=== PATIENT | female | born 1950 | race Caucasian/White ===

== ENCOUNTER 2022-05-08 11:46 | Outpatient (CLI) | payer MEDICARE, OTHER, SELFPAY ==
[2022-05-08 21:39] LABS: Chloride* 103 mmol/L (96-114)
[2022-05-08 21:40] LABS: Albumin* 4.1 g/dL (3.3-5.0); Potassium* 4.5 mmol/L (3.6-5.1); Sodium* 141 mmol/L (135-149)
[2022-05-08 21:42] LABS: Carbon Dioxide* 32 mmol/L (20-32); Cholesterol* 203 mg/dL (90-199); Creatinine* 0.8 mg/dL (0.5-1.5); Estimated Glomerular Filt Rate 79 ml/min
[2022-05-08 21:43] LABS: Alanine Aminotransferase* 19 U/L (4-35); Alkaline Phosphatase* 56 U/L (40-150); Aspartate Amino Transferase* 27 U/L (12-35); Bilirubin Total* 1.1 mg/dL (0.1-1.5); Blood Urea Nitrogen* 21 mg/dL (7-30); Glucose* 96 mg/dL (60-115); Total Protein* 7.3 g/dL (6.0-8.3); Triglycerides* 71 mg/dL (40-149)
[2022-05-08 21:44] LABS: Calcium* 9.6 mg/dL (8.4-10.6); HDL Cholesterol* 87 mg/dL (>=50); LDL Cholesterol Calculated 102 mg/dL (<100)
== END 2022-05-08 11:47 | disposition home or self-care (01) ==
PROVIDERS: PCP Physician Assistant Medical; Visit Provider Physician Assistant Medical
DX: Z00.00 Encounter for general adult medical examination without abnormal findings (principal); F32.A Depression, unspecified; I10 Essential (primary) hypertension; E66.9 Obesity, unspecified; Z13.6 Encounter for screening for cardiovascular disorders
CPT/HCPCS: 80053; 80061; 84443

== ENCOUNTER 2022-06-04 13:10 | Outpatient (CLI) | payer MEDICARE, OTHER, SELFPAY ==
--- NOTE | 2022-06-04 13:30 | CRLHL7_ITS ---
For Patients: As a result of the Century Cures Act, medical imaging exams and procedure reports are released immediately into your electronic medical record. You may view this report before your referring provider. If you have questions, please contact your health care provider. DXA BONE MINERAL DENSITY STUDY Current height (in): 63.0. Weight (lb): 180.0. Menopause age: 41. Ethnicity: White. 1. Have you had a previous hip or vertebral fracture? No. 2. Have you had any fractures during your adult life which did not result from significant trauma (e.g., auto accident)? No. 3. Did either of your parents have a hip fracture? No. 4. Do you smoke? No. 5. Have you ever taken Glucocorticoids? No. 6. Do you have rheumatoid arthritis? No. 7. Do you have secondary osteoporosis? No. 8. Do you drink 3 or more alcoholic drinks per day? No. 9. Are you being treated for osteoporosis? Yes. 10. Have you ever taken any of the following medications: Actonel, Evista, Fosamax, Miacalcin, Reclast, Boniva, Forteo, HRT (i.e. estrogen/hormone therapy), Protelos, Prolia, Vitamin D, Calcium, other ??? please specify. ANSWER: No. 11. Do you have any of the following medical conditions: Anorexia or bulimia, asthma or emphysema, end stage renal disease, hyperparathyroidism, any seizure disorders, cancer, inflammatory bowel diseases, hysterectomy, other ??? please specify. ANSWER: Yes, hysterectomy. 12. What was your maximum height (inches)? 64. 13. Do you perform weight bearing exercise regularly? No. 14. Do you regularly consume dairy products? Yes. 15. Do you drink caffeinated beverages? No. 16. At what age did your period start? 14. 17. Are you premenopausal? No. 18. How many full term pregnancies have you had? 19. Have you ever missed your period for more than 6 months in a row (not including or menopause)? No. TECHNIQUE: Bone mineral density study was performed using the [employer]. FINDINGS: The results of the study expressed as bone mineral density (BMD) are as follows: Lumbar spine L1 to L4: BMD: 0.846 g/cm2. T-score: -1.8. Z-score: 0.3. Neck Left: BMD: 0.670 g/cm2. T-score: -1.6. Z-score: 0.2. Right: BMD: 0.679 g/cm2. T-score: -1.5. Z-score: 0.3. Total Left: BMD: 0.821 g/cm2. T-score: -1.0. Z-score: 0.6. Right: BMD: 0.722 g/cm2. T-score: -1.8. Z-score: -0.2. IMPRESSION: Osteopenia. FRAX 10-year Fracture Risk Major Osteoporotic Fracture: 10 percent Hip Fracture: 1.6 percent Reported Risk Factors: [place] () Neck BMD=0.670, BMI=31.9 Donald Villagomez M.D. Diagnostic Radiologist [email or web address] CHETAN/[email or web address] / be/Dictated by: Donald Villagomez MD @ 06/04/2022 3:18:00 PM (Electronically Signed)
== END 2022-06-04 13:11 | disposition home or self-care (01) ==
LOC: RAD 13:11
PROVIDERS: PCP Physician Assistant Medical; Visit Provider Physician Assistant Medical
DX: Z78.0 Asymptomatic menopausal state (principal); M85.89 Other specified disorders of bone density and structure, multiple sites; N95.9 Unspecified menopausal and perimenopausal disorder
CPT/HCPCS: 77080

== ENCOUNTER 2022-06-16 14:34 | Outpatient (CLI) | payer MEDICARE, OTHER, SELFPAY | END 2022-06-16 14:35 | disposition home or self-care (01) | PROVIDERS: PCP Physician Assistant Medical; Visit Provider Physician Assistant Medical | DX: I10 Essential (primary) hypertension (principal); K21.9 Gastro-esophageal reflux disease without esophagitis; R07.9 Chest pain, unspecified; F32.A Depression, unspecified; M79.671 Pain in right foot | CPT/HCPCS: 80053; 82607; 83690; 84443 ==

== ENCOUNTER 2022-06-27 13:11 | Outpatient (CLI) | payer MEDICARE, OTHER, SELFPAY ==
--- NOTE | 2022-06-27 13:20 | CRLHL7_ITS ---
For Patients: As a result of the Century Cures Act, medical imaging exams and procedure reports are released immediately into your electronic medical record. You may view this report before your referring provider. If you have questions, please contact your health care provider. BILATERAL SCREENING MAMMOGRAM WITH COMPUTER-AIDED DETECTION TECHNIQUE: CC and MLO views were obtained. These mammographic images have been obtained using full-field digital technique. These mammographic images were interpreted with the benefit of computer-aided detection. COMPARISON FILM: 05/06/21, 04/18/20, 02/08/20. FINDINGS: There are scattered areas of fibroglandular density IMPRESSION: There is no radiographic evidence for malignancy. ASSESSMENT: BI-RADS Category 1: Negative RECOMMENDATION: Routine screening mammogram in 1 year. A lay language report of this examination will be provided to the patient. Donald Villagomez M.D. Diagnostic Radiologist [email or web address] CHETAN/[email or web address] Transcribed: 2:41 p.terrell arenas/Dictated by: Donald Villagomez MD @ 06/30/2022 8:36:00 AM (Electronically Signed)
== END 2022-06-27 13:12 | disposition home or self-care (01) ==
PROVIDERS: PCP Physician Assistant Medical; Visit Provider Physician Assistant Medical
DX: Z12.31 Encounter for screening mammogram for malignant neoplasm of breast (principal)
CPT/HCPCS: 77067

== ENCOUNTER 2022-10-02 10:38 | Outpatient (CLI) | payer MEDICARE, OTHER, SELFPAY ==
--- NOTE | 2022-10-02 11:00 | CRLHL7_ITS ---
For Patients: As a result of the Century Cures Act, medical imaging exams and procedure reports are released immediately into your electronic medical record. You may view this report before your referring provider. If you have questions, please contact your health care provider. Indication: EPIGASTRIC PAIN. VOMITING Technique: Postcontrast CT abdomen and pelvis. 92 cc Isovue 370 intravenous contrast. Please note that all CT scans at this facility use dose modulation, iterative reconstruction, and/or weight-based dosing when appropriate to reduce radiation dose to as low as reasonably achievable. Comparison: CT chest 08/22/2020 Findings: Mild dependent atelectasis noted within the left lower lobe. No pleural effusion. No free intraperitoneal air. Normal liver. The gallbladder is absent. No biliary obstruction. The adrenal glands are normal. No splenomegaly. Pancreas appears normal. Adrenal glands are normal. There are small bilateral renal cysts. No hydronephrosis. A few scattered mesenteric lymph nodes are noted measuring less than 1 cm. Also subcentimeter GE junction lymph nodes noted. Sigmoid diverticulosis. No diverticulitis. No bowel obstruction. No free fluid or abscess. No fracture noted. Degenerative changes at L5-S1. No hiatal hernia. Impression: A few scattered subcentimeter lymph nodes are present within the mesenteric fat and adjacent to the GE junction may suggest mild adenitis. No bowel obstruction or evidence of enteritis/colitis. Sigmoid diverticulosis. No diverticulitis. Please note that all CT scans at this facility use dose modulation, iterative reconstruction, and/or weight-based dosing when appropriate to reduce radiation dose to as low as reasonably achievable. Dictated by Donald Villagomez MD @ 10/02/2022 12:36:16 PM (Electronically Signed)
[2022-10-02 11:27] LABS: Creatinine* 0.9 mg/dL (0.5-1.5); Estimated Glomerular Filt Rate 68 ml/min
== END 2022-10-02 10:39 | disposition home or self-care (01) ==
LOC: CT 10:40
PROVIDERS: PCP Physician Assistant Medical; Visit Provider Physician Assistant Medical
DX: R10.13 Epigastric pain (principal); K57.90 Diverticulosis of intestine, part unspecified, without perforation or abscess without bleeding; K21.9 Gastro-esophageal reflux disease without esophagitis
CPT/HCPCS: 36415; 74177; 82565; Q9967

== ENCOUNTER 2022-10-03 10:00 | Outpatient (CLI) | payer MEDICARE, OTHER, SELFPAY ==
--- NOTE | 2022-10-03 10:46 | W.ANESCHARGE ---
Anesthesia Charges Start Date/Time Anesthesia Start Date: 10/03/22 Anesthesia Start Time: 10:30 Stop Date/Time Anesthesia Stop Date: 10/03/22 Anesthesia Stop Time: 10:45
== END 2022-10-03 10:01 | disposition home or self-care (01) ==
LOC: OP CLINIC 10:01
PROVIDERS: PCP Physician Assistant Medical; Visit Provider Internal Medicine
DX: R10.13 Epigastric pain (principal)
CPT/HCPCS: 00731; 43239; 88305; J2405; J2704

== ENCOUNTER 2023-01-02 07:56 | Outpatient (CLI) | payer MEDICARE, OTHER, SELFPAY ==
--- NOTE | 2023-01-02 08:15 | CRLHL7_ITS ---
For Patients: As a result of the Century Cures Act, medical imaging exams and procedure reports are released immediately into your electronic medical record. You may view this report before your referring provider. If you have questions, please contact your health care provider. Technique: Double-contrast upper GI performed after the uneventful administration of effervescent crystals and thick barium followed by thin barium. Small-bowel follow-through then performed. Fluoroscopy time 3 minutes 21 seconds. Indication: UPPER ABDOMINAL PAIN Comparison: None. Findings: Swallowing mechanism is normal. Decreased esophageal motility. Severe spontaneous reflux to the proximal esophagus. 2.5 cm sliding hiatal hernia. Tertiary contractions involving the distal esophagus. Gastric mucosal thickening located adjacent to the GE junction. Normal distal stomach and duodenal bulb. Small bowel loops are normal. Transit time less than 1 hour. Impression: Severe spontaneous gastroesophageal reflux into the proximal esophagus with associated distal esophageal tertiary contractions and decreased esophageal motility. 2.5 cm sliding hiatal hernia. Associated gastric fold thickening adjacent to the GE junction. No ulcer or obstruction. Normal duodenal bulb and small bowel loops without inflammatory bowel disease. Normal small bowel transit time. Dictated by Donald Villagomez MD @ 01/02/2023 10:44:48 AM (Electronically Signed)
== END 2023-01-02 07:57 | disposition home or self-care (01) ==
LOC: RAD 07:58
PROVIDERS: PCP Physician Assistant Medical; Visit Provider Internal Medicine
DX: R10.10 Upper abdominal pain, unspecified (principal); K21.9 Gastro-esophageal reflux disease without esophagitis
CPT/HCPCS: 74246; 74248

== ENCOUNTER 2023-07-27 13:08 | Outpatient (CLI) | payer MEDICARE, OTHER, SELFPAY ==
--- NOTE | 2023-07-27 13:20 | MM_ITS ---
Patient: SIDENY ROTH Facility:?[facility] Patient ID:?[id number] Site Patient ID:?[id number]. Site :?[id number] Study:?XRay-Breast Bilateral 3D W/CAD-07/27/2023 1:38:38 PM Ordering Physician:Tierney Final Report: BILATERAL SCREENING MAMMOGRAM WITH COMPUTER-AIDED DETECTION AND TOMOSYNTHESIS TECHNIQUE: CC and MLO views were obtained. These mammographic images have been obtained using full-field digital technique. These mammographic images were interpreted with the benefit of computer-aided detection. Breast Tomosynthesis was used in this interpretation. COMPARISON FILM: 06/09/22, 05/06/21, 04/18/20. FINDINGS: The breasts are heterogeneously dense, which may obscure small masses. IMPRESSION: There is no radiographic evidence for malignancy. ASSESSMENT: BI-RADS Category 2: Benign RECOMMENDATION: Routine screening mammogram in 1 year. A lay language report of this examination will be provided to the patient. Donald Villagomez M.D. Diagnostic Radiologist [email or web address] DSM/sp R& Transcribed: 3:17 p.m. SP/Dictated by: Donald Villagomez MD @ 07/28/2023 12:57:00 PM Signed by:?Donald Villagomez MD @07/28/2023 3:56:55 PM (Electronic Signature)
== END 2023-07-27 13:09 | disposition home or self-care (01) ==
LOC: MAMMO 13:09
PROVIDERS: PCP Physician Assistant Medical; Visit Provider Physician Assistant Medical
DX: Z12.31 Encounter for screening mammogram for malignant neoplasm of breast (principal); R92.2 Inconclusive mammogram
CPT/HCPCS: 77063; 77067

== ENCOUNTER 2023-10-05 06:34 | Outpatient (CLI) | payer MEDICARE, OTHER, SELFPAY ==
--- NOTE | 2023-10-05 08:23 | W.ANESCHARGE ---
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
--- NOTE | 2023-10-05 10:23 | W.ANESCHARGE ---
Anesthesia Charges Start Date/Time Anesthesia Start Date: 10/05/23 Anesthesia Start Time: 07:20 Stop Date/Time Anesthesia Stop Date: 10/05/23 Anesthesia Stop Time: 08:20
--- NOTE | 2023-10-05 10:24 | W.ANESCHARGE ---
Anesthesia Charges Start Date/Time Anesthesia Start Date: 10/05/23 Anesthesia Start Time: 07:20 Stop Date/Time Anesthesia Stop Date: 10/05/23 Anesthesia Stop Time: 08:20 Summary Extremes of Age - Over 70 or under 1: MDA
== END 2023-10-05 06:35 | disposition home or self-care (01) ==
LOC: OP CLINIC 06:34
PROVIDERS: PCP Physician Assistant Medical; Visit Provider Surgery
DX: Z12.11 Encounter for screening for malignant neoplasm of colon (principal); K63.5 Polyp of colon; K57.30 Diverticulosis of large intestine without perforation or abscess without bleeding
CPT/HCPCS: 00811; 45385; 88305; 99100; J2405; J2704

== ENCOUNTER 2024-05-12 15:36 | Outpatient (CLI) | payer MEDICARE, OTHER, SELFPAY | END 2024-05-12 15:37 | disposition home or self-care (01) | PROVIDERS: PCP Physician Assistant Medical; Visit Provider Physician Assistant Medical | DX: I10 Essential (primary) hypertension (principal); E78.5 Hyperlipidemia, unspecified; Z13.1 Encounter for screening for diabetes mellitus; Z13.820 Encounter for screening for osteoporosis | CPT/HCPCS: 80053; 80061; 84443 ==

== ENCOUNTER 2024-08-17 14:19 | Outpatient (CLI) | payer MEDICARE, OTHER, SELFPAY ==
--- NOTE | 2024-08-17 14:30 | CRLHL7_ITS ---
For Patients: As a result of the Century Cures Act, medical imaging exams and procedure reports are released immediately into your electronic medical record. You may view this report before your referring provider. If you have questions, please contact your health care provider. DXA BONE MINERAL DENSITY STUDY Reason for exam: Screening for osteoporosis. Current height (in): 63. Weight (lb): 175. Menopause age: 41. Ethnicity: White. 1. Have you had a previous hip or vertebral fracture? No. 2. Have you had any fractures during your adult life which did not result from significant trauma (e.g., auto accident)? No. 3. Did either of your parents have a hip fracture? No. 4. Do you smoke? No. 5. Have you ever taken Glucocorticoids? No. 6. Do you have rheumatoid arthritis? No. 7. Do you have secondary osteoporosis? No. 8. Do you drink 3 or more alcoholic drinks per day? No. 9. Are you being treated for osteoporosis? No. 10. Have you ever taken any of the following medications: Actonel, Evista, Fosamax, Miacalcin, Reclast, Boniva, Forteo, HRT (i.e. estrogen/hormone therapy), Protelos, Prolia, Vitamin D, Calcium, other ??? please specify. ANSWER: No. 11. Do you have any of the following medical conditions: Anorexia or bulimia, asthma or emphysema, end stage renal disease, hyperparathyroidism, any seizure disorders, cancer, inflammatory bowel diseases, hysterectomy, other ??? please specify. ANSWER: Yes, hysterectomy. 12. What was your maximum height (inches)? 64. 13. Do you perform weight bearing exercise regularly? No. 14. Do you regularly consume dairy products? Yes. 15. Do you drink caffeinated beverages? No. 16. At what age did your period start? 14. 17. Are you premenopausal? No. 18. How many full term pregnancies have you had? 3. 19. Have you ever missed your period for more than 6 months in a row (not including or menopause)? No. TECHNIQUE: Bone mineral density study was performed using the [employer]. FINDINGS: The results of the study expressed as bone mineral density (BMD) are as follows: Lumbar spine L1 to L4: BMD: 0.898 g/cm2. T-score: -1.4. Z-score: 0.9. Neck Left: BMD: 0.662 g/cm2. T-score: -1.7. Z-score: 0.3. Right: BMD: 0.611 g/cm2. T-score: -2.1 . Z-score: -0.2. Total Left: BMD: 0.819 g/cm2. T-score: -1.0 . Z-score: 0.7. Right: BMD: 0.768 g/cm2. T-score: -1.4. Z-score: 0.3. IMPRESSION: Osteopenia. *Comparison exams done prior to 08/2019 were performed on different unit, [employer]. COMPARISON: Compared with scan of 06/04/2022, the bone mineral density has increased by 6.1 percent at the spine and increased by 2.9 percent at the hip. FRAX 10-year Fracture Risk Major Osteoporotic Fracture: 13 percent Hip Fracture: 3.1 percent Reported Risk Factors: [place] () Neck BMD=0.611, BMI=31.0 Donald Villagomez M.D. Diagnostic Radiologist [email or web address] SP/Dictated by: Donald Villagomez MD @ 08/17/2024 3:50:00 PM (Electronically Signed)
--- NOTE | 2024-08-17 15:00 | CRLHL7_ITS ---
For Patients: As a result of the Century Cures Act, medical imaging exams and procedure reports are released immediately into your electronic medical record. You may view this report before your referring provider. If you have questions, please contact your health care provider. INDICATION: BILATERAL SCREENING MAMMOGRAM, ASYMPTOMATIC 74 Y/O FEMALE COMPARISON: 07/27/2023, 06/27/2022, 05/26/2021 TECHNIQUE: Digital mammogram in CC and MLO projections including computer-aided detection (CAD) and tomosynthesis. BREAST COMPOSITION: There are scattered areas of fibroglandular density. FINDINGS: No suspicious findings. ASSESSMENT: BI-RADS 1 Negative RECOMMENDATION: Annual screening mammogram. A lay language report of this examination will be provided to the patient. Dictated by: Donald Villagomez MD @ 08/18/2024 09:33:03 (Electronically Signed)
== END 2024-08-17 14:20 | disposition home or self-care (01) ==
LOC: RAD 14:20
PROVIDERS: PCP Physician Assistant Medical; Visit Provider Physician Assistant Medical
DX: Z12.31 Encounter for screening mammogram for malignant neoplasm of breast (principal); Z13.820 Encounter for screening for osteoporosis; M85.89 Other specified disorders of bone density and structure, multiple sites; Z78.0 Asymptomatic menopausal state
CPT/HCPCS: 77063; 77067; 77080

== ENCOUNTER 2024-10-13 05:55 | Outpatient (CLI) | payer MEDICARE, OTHER, SELFPAY ==
[2024-10-13 11:06] VITALS: BMI 33.1
== END 2024-10-13 05:56 | disposition home or self-care (01) ==
LOC: NUTRITION 05:56
PROVIDERS: PCP Physician Assistant Medical; Visit Provider Dietitian, Registered
DX: E66.9 Obesity, unspecified (principal); Z68.31 Body mass index [BMI] 31.0-31.9, adult; Z71.3 Dietary counseling and surveillance
CPT/HCPCS: G0463

== ENCOUNTER 2024-10-19 16:22 | Emergency (ER) | payer MEDICARE, OTHER, SELFPAY ==
--- NOTE | 2024-10-19 16:23 | ED.GENADULT ---
HPI - General Adult General Date Seen: 10/19/24 Chief complaint: Laceration/Wound Stated complaint: scratch on R hand Time Seen by Provider: 10/19/24 16:23 History of Present Illness HPI narrative: 74 yo generally healthy, fully vaccinated female (most recent tetanus was 2023) presenting to the ER today with a laceration to the dorsum of her right hand. She was playing with her family dog this afternoon. They were apparently playing with a dog toy. The dog accidentally scraped the back of her hand with 1 of his canines. It did not really by bite her hand or child down but rather just had the toothbrush the back of her hand and she suffered an injury. She suffered a curvilinear laceration on the dorsum of the right hand that overlies the 4th and 5th metacarpals. It is a couple of cm proximal to her dorsal MCP joints. She notes that the skin did gape open and she could see some ?white? material in the wound. She has been able to flex and extend her fingers. No associated numbness. Her daughter brought her to the ER because she is convinced that she will need stitches. The patient is afraid of needles and would hope she does not need stitches. The dog is fully vaccinated, including rabies. Related Data Home Medications ?Medication ?Instructions ?Recorded ?Confirmed omeprazole 20 mg capsule,delayed 20 mg PO BID 05/08/22 10/19/24 release hydrocortisone 2.5 % topical cream 1 applic MD BID PRN 01/26/23 10/19/24 with perineal applicator (Proctosol HC) Previous Rx's ?Medication ?Instructions ?Recorded amlodipine 5 mg tablet 5 mg PO QDAY #90 tabs 05/12/24 irbesartan 150 1 tab PO QDAY #90 tabs 05/12/24 mg-hydrochlorothiazide 12.5 mg tablet venlafaxine 150 mg 150 mg PO DAILY #90 caps 06/07/24 capsule,extended release 24 hr triamcinolone acetonide 0.1 % 1 applic topical BID PRN itching 09/19/24 topical cream #30 grams amoxicillin 875 mg-potassium 1 tab PO BID #10 tabs 10/19/24 clavulanate 125 mg tablet Allergies Allergy/AdvReac Type Severity Reaction Status Date / Time Sulfa (Sulfonamide Allergy Severe Rash Verified 10/19/24 16:40 Antibiotics) bacitracin (From Allergy Mild Rash Verified 10/19/24 16:40 Polysporin(bacitracin base)) polymyxin B (From Allergy Mild Rash Verified 10/19/24 16:40 Polysporin(bacitracin base)) [facility] Medical History (Updated 10/19/24 @ 17:45 by Uday Sawant MD) Corneal abrasion ?S05.00XA - Injury of conjunctiva and corneal abrasion without foreign body, unspecified eye, initial encounter (ICD-10) On hormone replacement therapy (10/09/11) ?Z79.890 - Hormone replacement therapy (ICD-10) Surgical History (Updated 02/10/22 @ 13:44 by Joana Montoya) History of total hysterectomy ?Z90.710 - Acquired absence of both cervix and uterus (ICD-10) History of cholecystectomy ?Z90.49 - Acquired absence of other specified parts of digestive tract (ICD-10) History of section ?Z98.891 - History of uterine scar from previous surgery (ICD-10) Family History (Updated 05/12/24 @ 16:09 by Mariajose Matos PA-C) Aunt Breast cancer Father Heart disease Mother Gallbladder disease Brother Gallbladder disease Daughter Thyroid disease Social History (Updated 05/12/24 @ 16:16 by Mikayla Mendez ~ CTA) Narrative: , three adult children. Daughter, son, and grandchildren live with pt, has chickens, 3 dogs and cats as pets non smoker What is your current living situation?: I presently have a place to live Problems where you live: no known problems In the past 12 months, utilities in danger of being shut off: no In past 12 months, lack of transportation kept you from medical appts, meetings, work, or getting things needed for daily living: no In the past 12 mos, have been you worried that your food would run out before you had money to buy more?: never true In the past 12 mos, the food you bought just didn't last and you didn't have money to buy more?: never true Smoking Status: Never smoker Do you use any of these nicotine containing products: None How often do you have a drink containing alcohol: never How often do you have six or more drinks on one occasion: Never AUDIT-C Alcohol total score: 0 Non-prescribed substance use: denies use How often does anyone, including family, friends and others, physically hurt you: never How often does anyone, including family, friends and others, insult or talk down to you: never How often does anyone, including family, friends and others, threaten you with harm: never How often does anyone, including family, friends and others, scream or curse at you: never service: No Exam Narrative: Exam Narrative: Constitutional: Appears well-developed and well-nourished. Active. Non-toxic appearing. Very polite. Somewhat nervous about needing stitches. HENT: Head: Atraumatic. No signs of injury. Nose: No nasal discharge. Mouth/Throat: Mucous membranes are moist. Pharynx is normal. Tonsils symmetric. Uvula midline. Airway patent. Eyes: Conjunctivae normal and EOM are normal. Pupils are equal, round, and reactive to light. Right eye exhibits no discharge. Left eye exhibits no discharge. No icterus. Neck: Normal range of motion. Neck supple. No adenopathy. No stridor. Cardiovascular: Normal rate and regular rhythm. Wrist distal cap refill. Strong radial pulse. No active bleeding. Pulmonary/Chest: Effort normal. No stridor. No respiratory distress. Abdominal: Soft. Bowel sounds are normal. No distension. No mass. There is no tenderness. There is no rebound and no guarding. Musculoskeletal: Normal except for her right hand- Normal range of motion. No edema. No tenderness. No deformity. Right upper extremity: Clavicle, shoulder, humerus, biceps, triceps, elbow, forearm, wrist are normal. On the right hand there is a 2.5 cm curvilinear laceration on the skin of the dorsal 4th and 5th metacarpals. When the patient flexes her fingers down the wound edge does gape about 4-5 mm. I can see exposed subcutaneous adipose tissue but I do not see and any evidence that this would extends down to the extensor tendon. No visible foreign body. No active bleeding. No arterial bleeding. Intact distal sensory function in the ulnar, median, or radial nerves. Intact distal digital nerve function. Normal flexion and extension of the MCP, PIP, DI P joints. Neurological: Alert. Normal strength. No cranial nerve deficit or sensory deficit. Coordination normal. GCS eye subscore is 4. GCS verbal subscore is 5. GCS motor subscore is 6. Skin: Skin is warm. No rash noted. Const: Vital Signs, click to edit/add: Vital Signs - 24 hr 10/19/24 16:31 10/19/24 18:20 Temperature 97.5 F L 98.7 F Pulse Rate [Right Pulse Oximeter] 84 62 Respiratory Rate 19 18 Blood Pressure [Ri t Upper Arm] 157/88 H 146/92 H Pulse Oximetry 95 74 L Oxygen Delivery Me thod Room Air Room Air Course Vital Signs Vital signs: Initial Vital Signs Temperature 97.5 F L 10/19/24 16:31 Temperature Source Temporal Artery Scan 10/19/24 16:31 Pulse Rate 84 10/19/24 16:31 Pulse Rhythm Regular 10/19/24 16:31 Pulse Strength 3+ Normal 10/19/24 16:31 Respiratory Rate 19 10/19/24 16:31 Blood Pressure 157/88 H 10/19/24 16:31 Blood Pressure Mean 111 H 10/19/24 16:31 Blood Pressure Position Sitting 10/19/24 16:31 Pulse Oximetry 95 10/19/24 16:31 Oxygen Delivery Method Room Air 10/19/24 16:31 Vital Signs Temperature 97.5 F L 10/19/24 16:31 Pulse Rate 84 10/19/24 16:31 Respiratory Rate 19 10/19/24 16:31 Blood Pressure 157/88 H 10/19/24 16:31 Pulse Oximetry 95 10/19/24 16:31 Oxygen Delivery Method Room Air 10/19/24 16:31 Temperature 98.7 F 10/19/24 18:20 Pulse Rate 62 10/19/24 18:20 Respiratory Rate 18 10/19/24 18:20 Blood Pressure 146/92 H 10/19/24 18:20 Pulse Oximetry 74 L 10/19/24 18:20 Oxygen Delivery Method Room Air 10/19/24 18:20 Medications Administered Medications: Discontinued Medications Generic Name Dose Route Start Last Admin Trade Name Freq PRN Reason Stop Dose Admin Bupivacaine HCl 30 ml 10/19/24 17:21 10/19/24 17:26 Bupivacaine 0.25% 30 Ml INJECTION 10/19/24 17:22 30 ml ONCE ONE Administration Medical Decision Making MDM Narrative Medical decision making narrative: Findings and exam are consistent with an uncomplicated laceration which was repaired as noted above. There is no evidence at this time to suggest any associated fracture or foreign body. There is no evidence to suggest tendon or arterial injury and patient is neurologically in tact[]. The patient is to follow up for suture removal as instructed in 9-10 days. Indications to seek urgent reevaluation and signs of infection (including but not limited to increasing pain, redness, swelling, fevers, and drainage) were reviewed. Tetanus is up-to-date. This is a clean and non-contaminated , we did copiously scrubbed and irrigated after local anesthesia. Since it is a dog bite on the hand we will start prophylactic Augmentin.. An understanding of the discharge instructions and need for follow up were verbally confirmed. Discharge Plan Discharge Clinical Impression: Dog bite, Laceration of right hand Patient Disposition: Home, Self-Care Condition: Stable Instructions: Animal Bite (ED), Laceration (DC) Additional Instructions: As we discussed, please keep the wound covered with a dressing today. Beginning tomorrow, take the dressing off and wash the wound gently with gauze soaked in warm clean water. You do not have to use bleach or hydrogen peroxide or other potent antiseptics on the wound, just warm water will be fine. Try not to submerge the wound under water but it is okay to wash gently with gauze. After the wound is clean, gently dry it with clean dry gauze or let it air dry. Then reapply antibiotic ointment they are not allergic to and reapply a large bandage to cover the back of your hand in the stitches. Clean the wound once per day and monitor carefully for any signs of infection. If you notice redness, swelling, pus draining from the wound, red streaks moving up or down your hand, or your having worsening pain or fever, please come back to the ER or see your doctor right away. Start on the preventative antibiotic (Augmentin) this evening to help prevent infections from this dog wound. Please follow-up with your doctor to have the stitches out next or Thursday (10/27 or 10/28). If not able to get into your doctor, you can come back to the ER for suture removal Prescriptions: New amoxicillin-pot clavulanate 875-125 mg tablet 1 tab PO BID Qty: 10 0RF No Action omeprazole 20 mg capsule,delayed release(DR/EC) 20 mg PO BID irbesartan-hydrochlorothiazide 150-12.5 mg tablet 1 tab PO QDAY Qty: 90 3RF Rx Instructions: once daily for high blood pressure amlodipine 5 mg tablet 5 mg PO QDAY Qty: 90 3RF Rx Instructions: once daily for blood pressure hydrocortisone [Proctosol HC] 2.5 % cream with perineal applicator 1 applic MD BID PRN venlafaxine 150 mg capsule,extended release 24hr 150 mg PO DAILY Qty: 90 1RF Rx Instructions: Take 1 capsule daily in addition to already prescribed 37.5mg capsule. triamcinolone acetonide 0.1 % cream 1 applic topical BID PRN (Reason: itching ) Qty: 30 3RF Rx Instructions: twice daily as needed for itching on scalp Follow Up/Referrals: Mariajose Matos PA-C [Primary Care Provider, Family Practice] Stand Alone Forms: [facility] Info Instructions Procedures Laceration Dorsal right hand laceration: Verification/time out: correct patient and correct site Site: upper extremity (Dorsal right hand) Side (If applicable): right Size (cm): 2.5 Description: linear Depth: simple, single layer Local Anesthetic: bupivacaine 0.25% Amount of anesthesia used (mL): 5 Pre-repair: wound explored and irrigated extensively Skin layer closed with: nylon Size (cm): 5-0 Number of sutures: 5 Technique: simple, interrupted
--- OUTSIDE RECORDS SUMMARY | 2024-10-19 16:24 | XMS_ITS | Clinical Summary ---
Author Organization [facility] Address [address] [address] Care Team Providers Care Commodities Trader Name Role Phone Joana Barrera MD Primary Care Provider [phone] Source Comments You are receiving this document as you are listed as the primary care provider,follow-up provider, or the patient has been referred to you for consultation.This is in compliance with the Medicare and[facility] EHR Incentive Program,which states Providers who transition their patient to another setting of careor provider of care or refers their patient to another provider of care shouldprovide summary care record for each transition of care or referral. [facility] Allergies Active Allergy Reactions Criticality Noted Date Comments Bacitracin Hives 10/17/2015 Sulfa Antibiotics 10/17/2015 PN: makes her turn red Medications amLODIPine (NORVASC) 2.5 MG tablet Take 2.5 mg by mouth daily (every 24 hours). 10/17/2015 Active venlafaxine (EFFEXOR) 75 MG tabletIndicatio ns:LUANN ENRIQUE ThuOct 17, 2015 9:06 AM Received from: [facility] Take 75 mg by mouth. 07/03/2013 Active omeprazole (PRILOSEC) 20 MG capsule Take 20 mg by mouth daily (every 24 hours). 10/17/2015 Active fluticasone (FLONASE SENSIMIST) 27.5 MCG/SPRAY nasal solutionIndicat ions:Nasal congestion Place 2 Sprays into both nostrils daily. 1 Bottle 1 01/21/2018 Active Active Problems Problem Noted Date Diagnosed Date Obstructive sleep apnea on CPAP 02/07/2016 Overview (01/21/2018): Setting: APAP 5-15 FFM Supplied by: [employer] PSG done: 10/26/15 AHI 43 RDI 44 Lowest O2 Sat: 81% [place] 01/21/18 change to [place] New 11/19/15, change/renew in Vendor 06/12/16;(refaxed 11-03-16) Social History Tobacco Use Types Packs/Day Years Used Date Smoking Tobacco: Never Smokeless Tobacco: Never Alcohol Use Standard Drinks/Week Comments Yes 0 (1 standard drink = 0.6 oz pur e alcohol) Rare Comments Unknown Sex and Gender Information Value Date Recorded Sex Assigned at Not on file Legal Sex Female 3:35 PM CDT Gender Identity Not on file Sexual Orientation Not on file Last Filed Vital Signs Vital Sign Reading Time Taken Comments Blood Pressure 138/90 01/21/2018 12:19 PM CDT Pulse 71 01/21/2018 12:19 PM CDT Temperature - - Respiratory Rate 16 11/01/2015 1:29 PM CDT Oxygen Saturation 97% 01/21/2018 12:19 PM CDT Inhaled Oxygen Concentration - - Weight 85.7 kg (189 lb) 01/21/2018 12:19 PM CDT Height 160 cm (5' 3) 01/21/2018 12:19 PM CDT Body Mass Index 33.48 01/21/2018 12:19 PM CDT Plan of Treatment Health Maintenance Due Date Last Done Comments Colon Cancer Screening Plan Due 1950 Hep C Screening (Preventive Services) 1950 Medicare Annual Wellness Visit 1950 Mammogram 1950 Cholesterol 1996 Dexa 2016 DTaP/Tdap/Td Vaccine (3 - Tdap) 08/13/2022 08/13/2012, 02/03/2011, 04/13/2006, Additional history exists COVID-19 Vaccine (3 - 2023- season) 2023 07/03/2020, 06/12/2020 Influenza Vaccine (#1) 2024 , 02/28/2019, 01/26/2018, Additional history exists RSV Vaccine (1 - 1-dose 75+ series) 2026 Pneumococcal Vaccine 50+ Yrs Completed 03/22/2018, 03/20/2017 Zoster/Shingles Vaccine Completed 05/04/2019, 11/11 HepA Vaccine Aged Out No longer eligi ble based on patient's age to complete this topic HepB Vaccine Aged Out No longer eligi ble based on patient's age to complete this topic Hib Vaccine Aged Out No longer eligi ble based on patient's age to complete this topic IPV (Polio) Vaccine Aged Out No longe r eligible based on patient's age to complete this topic MCV4 Vaccine Aged Out No longer eligi ble based on patient's age to complete this topic Meningococcal B Vaccine Aged Out No l onger eligible based on patient's age to complete this topic Insurance MEDICARE [employer] Care Teams Commodities Trader Relationship Specialty Start Date End Date Joana Barrera MD [address] [place] [address] [id number] [facility] - General 09/20/15
--- OUTSIDE RECORDS SUMMARY | 2024-10-19 16:24 | XMS_ITS | Clinical Summary ---
Author Organization [employer] [facility] Address [address] [place] [address] Care Team Providers Care Checker Product Design Name Role Phone Pcp, No Primary Care Provider Unavailabl e Allergies Active Allergy Reactions Criticality Noted Date Comments Bacitracin *Unknown 07/25/2009 Sulfa (Sulfonamide Antibiotics) *Unknown 06/29 Medications triamcinolone (ARISTOCORT; KENALOG) 0.1 % creamIndications :Eczema, dyshidrotic Apply topically to affected area(s) 3 times daily. 60 g 3 2 Active ALPRAZolam (XANAX) 1 mg tabletIndication s:Anxiety state, unspecified Take 1 tablet by mouth 3 times daily if needed. 21 tablet 0 2 Active estradiol (ESTRACE) 0.5 mg tablet Take 1 tablet by mouth once daily. 30 tablet 6 2 Active hydrochlorothiaz loren (HCTZ) 25 mg tabletIndication s:Essential hypertension, benign Take 0.5 tablets by mouth once daily. 90 tablet 3 2 Active irbesartan (AVAPRO) 150 mg tabletIndication s:Essential hypertension, benign Take 1 tablet by mouth once daily. 90 tablet 3 2 Active venlafaxine (EFFEXOR) 75 mg tablet Take 1 tablet by mouth every morning. 0 4 Active Active Problems Problem Noted Date Diagnosed Date GERD (gastroesophageal reflux disease) 2 Symptomatic menopausal or female climacteric sta les 07/28/2011 Eczema, dyshidrotic 02/26/2010 Major depressive disorder, r ecurrent episode, in partial or unspecified remission 02/26/2010 Essential hypertension, benign Anxiety state, unspecified Resolved Problems Problem Noted Date Diagnosed Date Resolved Date Depression, endogenous 02/26 Immunizations Immunization Administration Dates Next Due Influenza, IIV3 (Age >=3 years) 02/03/2011,02/26 Td (Age >=7 Years) 11/09/2004 Tdap 02/03/2011 Tuberculin (PPD) 08/05/2010 Family History Medical History Relation Name Comments Heart Disease Father mi age 62 Cancer-prostate Maternal Grandfather Cancer Mother Heart Disease Mother Stroke Mother Relation Name Status Comments Father Maternal Grandfather Mother Social History Tobacco Use Types Packs/Day Years Used Date Smoking Tobacco: Never Smokeless Tobacco: Never Tobacco Cessation:Counseling Given: No Alcohol Use Standard Drinks/Week Comments No 0 (1 standard drink = 0.6 oz pur e alcohol) Comments No Sex and Gender Information Value Date Recorded Sex Assigned at Not on file Legal Sex Female 7:51 AM CIGAR MAKER Gender Identity Not on file Sexual Orientation Not on file Obstetrics History Para Term AB IAB SAB Ectopic Multiple Livin g Live Births 3 Date Outcome GA Total Labor Labor/2nd/3rd Weight Sex Type Anes PTL Geri A1 A5 Name Clin Last Filed Vital Signs Vital Sign Reading Time Taken Comments Blood Pressure 124/82 07/03/2013 3:16 PM CDT Pulse 75 07/03/2013 3:16 PM CDT Temperature 36.6 C (97.8 F) 07/03/2013 3:16 PM CDT Respiratory Rate 12 07/03/2013 3:16 PM CDT Oxygen Saturation 99% 07/03/2013 3:16 PM CDT Inhaled Oxygen Concentration - - Weight 84.4 kg (186 lb) 07/28/2011 10:54 AM CDT Height 162.6 cm (5' 4) 04/09/2011 9:09 AM CIGAR MAKER Body Mass Index 31.93 04/09/2011 9:09 AM CIGAR MAKER Plan of Treatment Health Maintenance Due Date Last Done Comments Depression screening for age 12+ 1963 BMI (ht and wt on same day) for age 18+ 1969 Hepatitis C screening for age 18-79 1969 Pneumococcal series for age 50+ (1 of 1 - PCV) 2001 Zoster (shingles) series for age 50+ (1 of 2) 2001 Colonoscopy through age 75 09/28/201109/27 (Completed outside of [facility]) Mammogram for age 45-75 04/09/2012 04/09/19 12, 02/12/2010, 08/31/2008 Lipids for age 45-75 04/09/2016 04/09/2011, 02/27/20 10 DEXA/DXA scan for age 65+ 2016 12/20/2004 Tetanus booster 02/03/2021 02/03/2011, 11/09/2004 COVID-19 vaccine series (1 - 2023-25 season) 2023 Influenza Vaccine (#1) 2024 02/03/2011, 2009 RSV vaccine for adults or (1 - 1-dose 75+ series) 2026 Hepatitis B series for 19+ Aged Out N o longer eligible based on patient's age to complete this topic Procedures Procedure Name Priority Date/Time Associated Diagnosis Comments LIPID PANEL W REFLEX MEASURED LDL Routine 04/09/2011 9:57 AM CIGAR MAKER Routine general medical examination at a health care facility XR MAMMO SCREENING BILATERAL (IA) Routine 04/09/2011 8:45 AM CIGAR MAKER Other screening mammogram SCAN-BONE DENSITOMETRY DEXA 12/20/2004 12:00 AM CDT from Last 3 Months or Most Recently Relevant to Health Maintenance Results * LIPID PANEL W REFLEX MEASURED LDL (04/09/2011 9:57 AM CIGAR MAKER) CHOLESTEROL,TOTAL 185 110 - 199 mg/dL [facility] TRIGLYCERIDES 87 40 - 149 mg/dL [facility] HDL CHOLESTEROL 59 >40 mg/dL [facility] CHOL/HDL RATIO 3.[address] [facility] LDL CHOLESTEROL 109 <131 mg/dL [facility] PATIENT STATUS Fasting [facility] Blood specimen (specimen) BLOOD SPECIMEN / Unknown 04/09/2011 9:57 AM CIGAR MAKER 04/09/2011 9:51 AM CIGAR MAKER Erasmo Márquez CHEMISTRY Final Result [facility] INTERNAL ZIP [id number] [address] * XR MAMMO SCREENING BILATERAL (04/09/2011 8:45 AM CIGAR MAKER) Anatomical Region Laterality Modality BREASTS, Breast Left, Breast Right Bilateral Other 04/09/2011 8:45 AM CIGAR MAKER Narrative 04/09/2011 10:45 AM CIGAR MAKER BILAT SCREEN MAMMOGRAM DIGITAL SCREENING MAMMOGRAM, BILATERAL, DIGITAL w/CAD - April 09, 2011 BREAST SYMPTOMS: None reported. COMPARISON: 02/12/10, 06/12/06. PARENCHYMAL PATTERN: Heterogeneously dense, which could obscure detection of small masses. COMMENTS: No findings of suspicion for malignancy. IMPRESSION: BI-RADS CATEGORY 1, NEGATIVE. RECOMMENDATION: Recommend routine annual screening mammography. Exam results letter mailed to patient. Procedure Note Unknown, Doctor - 04/09/2011 BILAT SCREEN MAMMOGRAM DIGITAL SCREENING MAMMOGRAM, BILATERAL, DIGITAL w/CAD - April 09, 2011 BREAST SYMPTOMS: None reported. COMPARISON: 02/12/10, 06/12/06. PARENCHYMAL PATTERN: Heterogeneously dense, which could obscure detection of small masses. COMMENTS: No findings of suspicion for malignancy. IMPRESSION: BI-RADS CATEGORY 1, NEGATIVE. RECOMMENDATION: Recommend routine annual screening mammography. Exam results letter mailed to patient. Erasmo Ghazal Márquez MAMMO Final Result * SCAN-BONE DENSITOMETRY DEXA (12/20/2004 12:00 AM CDT) Anatomical Region Laterality Modality Other Narrative Procedure Note Scanner - 12/20/2004 12:00 AM CDT us Scanner OTHER Final Result from Last 3 Months or Most Recently Relevant to Health Maintenance Insurance MEDICARE [place] ONLY [facility] Care Teams Checker Product Design Relationship Specialty Start Date End Date Pcp, No . PCP - General 07/04/13
[2024-10-19 16:31] VITALS: BP 157/88; PULSE 84; RESP 19; TEMP 36.4; O2SAT 95; BMI 32.4
[2024-10-19] MEDS: BUPIVACAINE 0.25% 30 ML INJECTION (17:26)
[2024-10-19 18:20] VITALS: BP 146/92; PULSE 62; RESP 18; TEMP 37.1; O2SAT 74
== END 2024-10-19 18:33 | disposition home or self-care (01) ==
LOC: ED 18:27
PROVIDERS: Emergency Provider Emergency Medicine; PCP Physician Assistant Medical
DX: S61.411A Laceration without foreign body of right hand, initial encounter (principal); W54.0XXA Bitten by dog, initial encounter
CPT/HCPCS: 12001; 99282; 99283; J0665

== ENCOUNTER 2024-10-25 08:57 | Outpatient (CLI) | payer MEDICARE, OTHER, SELFPAY ==
[2024-10-25 13:28] VITALS: BMI 32.8
== END 2024-10-25 08:58 | disposition home or self-care (01) ==
LOC: NUTRITION 08:57
PROVIDERS: PCP Physician Assistant Medical; Visit Provider Dietitian, Registered
DX: E66.9 Obesity, unspecified (principal); Z68.31 Body mass index [BMI] 31.0-31.9, adult; Z71.3 Dietary counseling and surveillance
CPT/HCPCS: G0463

== ENCOUNTER 2024-11-11 09:16 | Outpatient (CLI) | payer MEDICARE, OTHER, SELFPAY ==
[2024-11-11 15:07] VITALS: BMI 33.1
== END 2024-11-11 09:17 | disposition home or self-care (01) ==
LOC: NUTRITION 09:16
PROVIDERS: PCP Physician Assistant Medical; Visit Provider Dietitian, Registered
DX: E66.9 Obesity, unspecified (principal); Z68.31 Body mass index [BMI] 31.0-31.9, adult; Z71.3 Dietary counseling and surveillance
CPT/HCPCS: G0463

== ENCOUNTER 2024-12-09 07:42 | Outpatient (CLI) | payer MEDICARE, OTHER, SELFPAY ==
[2024-12-09 16:20] VITALS: BMI 32.5
== END 2024-12-09 07:43 | disposition home or self-care (01) ==
LOC: NUTRITION 07:42
PROVIDERS: PCP Physician Assistant Medical; Visit Provider Dietitian, Registered
DX: E66.9 Obesity, unspecified (principal); Z68.31 Body mass index [BMI] 31.0-31.9, adult; Z71.3 Dietary counseling and surveillance
CPT/HCPCS: G0463